=== PATIENT | female | born 1940 | race African-American/Black ===

== ENCOUNTER 2017-07-15 02:52 | Emergency (ER) | payer BC, MEDICARE ==
[~2017-07-15] VITALS: Ht 167.6 cm; Wt 77.1 kg
[~2017-07-15 02:52] MED LIST: AMOX1TAB61 PO; LATA2.5D3 EACHEYE; LORA10TA3 PO; LOSA50TA6 PO; METF500T4 PO; PANT40TA5 PO
[2017-07-15] MEDS ORDERED: LOSARTAN POTASSIUM 50 MG TABLET. PO SCH (03:30)
[2017-07-15] MEDS ORDERED: hydroCHLOROthiazide 25 MG TABLET PO ONE (03:30)
--- NOTE | 2017-07-15 03:50 | PHYS DOC ---
Past Medical History Past Medical History: COPD, Diabetes-Type II, Hypertension, Other Additional Past Medical Histor: poor historian Past Surgical History: Hysterectomy, Other Additional Past Surgical Histo: lypoma surgery Alcohol Use: None Drug Use: None Adult General Chief Complaint Chief Complaint: HYPERTENSION HPI HPI Patient is a 77 year old COPD, diabetes and hypertension who presents with concern of elevated blood pressure. Patient reports home blood pressure is 220 over upper 90s this morning. Patient checks her blood pressure routinely is not due for her dose of losartan total 8:30 this morning. Patient denies headache, dizziness, lightheadedness, chest pain, palpitations shortness of breath, abdominal pain or increased leg pain or swelling. Patient has any symptoms at the time of taking her blood pressure medication but does feel nervous after taking her prompting her visit to the emergency department today. Patient was recently increased had her dose of Losartan/HCTZ increased. She is compliant with her medications. She denies any acute symptoms or complaints at this time. Patients PCP is Dr. Benavidez. Review of Systems Review of Systems ROS as per HPI. All other ROS are negative. Current Medications Current Medications Current Medications Medications (Trade) Dose Ordered Sig/Brittnee Start Time Stop Time Status Last Admin Dose Admin Hydrochlorothiazide (Hydrodiuril) 25 mg 1X ONCE 07/15/17 03:30 07/15/17 03:31 DC 07/15/17 03:20 25 MG Losartan Potassium (Cozaar) 100 mg DAILY 07/15/17 03:30 07/15/17 03:20 100 MG Allergies Allergies Allergies Coded Allergies Type Severity Reaction Last Updated Verified ibuprofen Adverse Reaction Severe gi bleed 07/15/17 Yes Physical Exam Physical Exam Constitutional: Well developed, well nourished, no acute distress, non-toxic appearance. [] HENT: Normocephalic, atraumatic, bilateral external ears normal, oropharynx moist, no oral exudates, nose normal. [] Eyes: PERRLA, EOMI, conjunctiva normal, no discharge. [] Neck: Normal range of motion, no tenderness, supple, no stridor. [] Cardiovascular:Heart rate regular rhythm, no murmur [] Lungs & Thorax: Bilateral breath sounds clear to auscultation [] Abdomen: Bowel sounds normal, soft, no tenderness, no masses, no pulsatile masses. [] Skin: Warm, dry, no erythema, no rash. [] Back: No tenderness. [] Extremities: No tenderness, no cyanosis, no clubbing, ROM intact, no edema. [] Neurologic: Alert and oriented X 3, normal motor function, normal sensory function, no focal deficits noted. [] Psychologic: Affect anxiousl, judgement normal, mood normal. [] Current Patient Data Vital Signs Vital Signs Date Time Temp Pulse Resp B/P (MAP) Pulse Ox O2 Delivery O2 Flow Rate FiO2 07/15/17 03:20 96 199/89 07/15/17 03:11 98.4 16 98 Room Air 98.4 EKG EKG [] Radiology/Procedures Radiology/Procedures [] Course & Med Decision Making Course & Med Decision Making Pertinent Labs and Imaging studies reviewed. (See chart for details) [Patient presents with asymptomatic hypertension but with anxiety related to hypertension. Home blood pressure medications given. Blood pressure gradually improved while in the ED with reassurance and treatment. Patient instructed to follow-up with PCP regarding management all blood pressure. She is instructed to return to the ED should she develop chest pain dizziness palpitations shortness breath or other concerning symptoms. Patient verbalizes understanding and agreement with plan.] Dragon Disclaimer Dragon Disclaimer This electronic medical record was generated, in whole or in part, using a voice recognition dictation system. Departure Departure Impression: Primary Impression: Hypertension Disposition: 01 HOME, SELF-CARE Condition: STABLE Patient Instructions: Hypertension, [id number] Additional Instructions: You were treated in the emergency department for high blood pressure. [place] do not take your morning dose of blood pressure this morning. Take next dose of blood pressure medication on 07/16/17 at 8:30 AM. Please follow-up with your primary care physician for management of high blood pressure. If you develop headache, chest pain palpitations or shortness of breath, return to the emergency department. ZEV DHILLON DO Jul 15, 2017 03:50
[2017-07-15 04:00] VITALS: BP 172/79
== END 2017-07-15 04:19 | disposition home or self-care (01) ==
LOC: ER 02:52
DX: I10 Essential (primary) hypertension (principal); E11.9 Type 2 diabetes mellitus without complications; J44.9 Chronic obstructive pulmonary disease, unspecified; Z90.710 Acquired absence of both cervix and uterus; Z88.8 Allergy status to other drugs, medicaments and biological substances
CPT/HCPCS: 99284